=== PATIENT | male | born 1970 | race Caucasian/White ===

== ENCOUNTER → 2016-09-05 | Day surgery (SDC) | payer OTHER ==
[~2016-09-05] VITALS: Ht 175.3 cm; Wt 109.9 kg
[~2016-09-05] MED LIST: ACETAMINOPHEN 1000 MG/100 ML VIAL IV ONE; AMLO5TAB2 PO; ASPI1TAB69 PO; DO NOT ADM ANY ANTICOAGULANT DRUGS XX PRN; FAMOTIDINE 20 MG/2 ML VIAL ONE; INSULIN HUMAN REGULAR 1,000 UNITS/10 ML VIAL SQ PRN; IOHEXOL 350 MG/ML 10 ML VIAL (for RAD DIAG) ONE; KETOROLAC TROMETHAMINE 60 MG/2 ML (IM) VIAL IM ONE; LACTATED RINGER'S 1000 ML IV SCH; LISI-515 PO; LISI20TA3 PO; METOCLOPRAMIDE HCL 10 MG/2 ML VIAL ONE; METOPROLOL TARTRATE 25 MG TAB PO PRN; MIDAZOLAM HCL 2 MG/2 ML VIAL ONE; ONDANSETRON HCL 4 MG/2 ML VIAL IV PUSH ONE; ONDANSETRON HCL 4 MG/2 ML VIAL IV PUSH PRN; PERC5TAB12 PO; PRED20 PO; PROPOFOL 200 MG/20 ML AMP IV ONE; SODIUM CHLORID 0.9% 500 ML IV SCH; ePHEDrine/NS 25 MG/5 ML SYR IV ONE; oxyCODONE/ACETAMINOPHEN 5 MG/325 MG TAB PO PRN
[2016-09-05 08:39] VITALS: BP 161/84; PULSE 80; RESP 18; TEMP 97.9; O2SAT 98
--- NOTE | 2016-09-05 09:08 | RADRPT ---
EXAM DATE/TIME: 09/05/2016 08:15 [facility] COMPARISON: No previous studies available for comparison. INDICATIONS : Pre op lithotripsy. MEDICAL HISTORY : None. SURGICAL HISTORY : None. ENCOUNTER: Initial ACUITY: 1 day PAIN SCORE: 2/10 LOCATION: Right kidney. FINDINGS: Faint density measuring at least 24 mm projects over the central portion of the right kidney, presuma omar a large calculus. No other stones are seen. Normal bowel gas pattern. CONCLUSION: Large right renal mid zone stone. Bruce Palma MD on September 05, 2016 at 9:05 Board Certified Radiologist. This report was verified electronically.
[2016-09-05 09:10] LABS: AUTOMATED NEUTROPHIL # 4.5 TH/MM3 (1.8-7.7); BASOPHIL # 0.1 TH/MM3 (0-0.2); BASOPHIL % 0.8 % (0.0-2.0); EOSINOPHIL # 0.3 TH/MM3 (0-0.4); EOSINOPHIL % 3.7 % (0.0-4.0); HEMATOCRIT 36.3 % (39.0-51.0); HEMO FLAGS DIFF FINAL; LYMPH % 26.7 % (9.0-44.0); LYMPHOCYTE # 1.9 TH/MM3 (1.0-4.8); MEAN CELL VOLUME 85.6 FL (80.0-100.0); MEAN CORPUSCULAR HEMOGLOBIN 29.6 PG (27.0-34.0); MEAN CORPUSCULAR HGB CONC 34.5 % (32.0-36.0); MONO % 7.1 % (0.0-8.0); NEUT % 61.7 % (16.0-70.0); PLATELET COUNT 224 TH/MM3 (150-450); RED BLOOD COUNT 4.24 MIL/MM3 (4.50-5.90); RED CELL DISTRIBUTION WIDTH 13.5 % (11.6-17.2); WHITE BLOOD COUNT 7.3 TH/MM3 (4.0-11.0)
--- NOTE | 2016-09-05 11:56 | PD.OP ---
Operative Report Date of Surgery: Sep 05, 2016 Preoperative Diagnosis: (1) Renal calculus, right Postoperative Diagnosis: (1) Renal calculus, right (2) Urethral stricture Procedure: Cystoscopy, direct visual internal urethrotomy, right retrograde pyelogram, right ureteral stent placement and extracorporeal shockwave lithotripsy of right renal calculus Anesthesia: General Surgeon: Toby Tyler Archeology Faculty Member(s): None Operation and Findings: Indication for procedure: Case of a pleasant 45-year-old gentleman with an approximately 3 cm right renal pelvis calculus who presents today to undergo cystoscopy and right stent placement and right sided shockwave lithotripsy. Procedure in detail: Patient was brought to the operating room suite and placed supine on the lithotripsy table. He was then placed under general anesthesia. He was then repositioned in the dorsal lithotomy position and prepped and draped in normal sterile fashion. After appropriate timeout was undertaken I proceeded with cystoscopic evaluation utilizing the rigid cystoscope with the 20 Niuean sheath and 30 lens. The scope was advanced up to the point of the bulbar urethra and a circumferential urethral stricture was noted that precluded further passage of the cystoscope. The cystoscope was exchanged for the direct visual internal urethrotome and a visual internal urethrotomy was performed utilizing the straight blade by cutting at the 12 o'clock position. Once the stricture was opened I once again exchanged the scope back to the cystoscope and completed cystoscopic evaluation. Both right and left ureteral orifices were in correct anatomic position effluxing clear yellow urine. There were no bladder mucosal lesions, no calculi noted diverticula formation. The prostate was nonobstructing. I then proceeded with utilizing a 5 Niuean open- ended ureteral catheter and performed a right retrograde pyelogram to outline the right collecting system. A sensor 0.035 wire was advanced through the open- ended catheter up to the upper pole collecting system and the open-ended catheter was then exchanged for a 6 Niuean 26 cm petroleum terminal plant operator double-J stent. The stent was passed on the both cystoscopic and fluoroscopic guidance without difficulty. Once the stent was in proper position the trailing string was removed. Next the cystoscope was withdrawn and a 18 Niuean 10 cc Gaspar catheter was placed and connected to gravity drainage. Next the patient's right renal pelvis stone was localized with both fluoroscopy and ultrasound and subsequent shockwave lithotripsy was performed. The MyLorry Piezolith 3000 device was utilized to accomplish this. The patient received a total of 3000 shocks with a maximum power level setting of 20. At the conclusion of the procedure the stone still appeared intact. The patient tolerated the procedures without complications and was transferred to the PACU in satisfactory condition. Toby Tyler MD Sep 05, 2016 11:56
[2016-09-05 13:20] VITALS: BP 141/69; PULSE 93; RESP 16; TEMP 98.2; O2SAT 96
== END | disposition home or self-care (01) ==
LOC: HSDC 07:40
PROVIDERS: ATTEND Urology
DX: N20.0 Calculus of kidney (principal); N35.9 Urethral stricture, unspecified
CPT/HCPCS: 00873; 00910; 50590; 52276; 52332; 74000; 85025; C1769; J0131; J1885; J2250; J2405; J2765; J3010; J7120; Q9967

== ENCOUNTER 2016-10-15 06:37 | Day surgery (SDC) | payer OTHER ==
[~2016-10-15] VITALS: Ht 175.3 cm; Wt 109.1 kg
[~2016-10-15 06:37] MED LIST changes: -ACETAMINOPHEN 1000 MG/100 ML VIAL IV ONE; -DO NOT ADM ANY ANTICOAGULANT DRUGS XX PRN; -FAMOTIDINE 20 MG/2 ML VIAL ONE; -INSULIN HUMAN REGULAR 1,000 UNITS/10 ML VIAL SQ PRN; -IOHEXOL 350 MG/ML 10 ML VIAL (for RAD DIAG) ONE; -KETOROLAC TROMETHAMINE 60 MG/2 ML (IM) VIAL IM ONE; -LACTATED RINGER'S 1000 ML IV SCH; -LISI-515 PO; -METOCLOPRAMIDE HCL 10 MG/2 ML VIAL ONE; -METOPROLOL TARTRATE 25 MG TAB PO PRN; -MIDAZOLAM HCL 2 MG/2 ML VIAL ONE; -ONDANSETRON HCL 4 MG/2 ML VIAL IV PUSH ONE; -ONDANSETRON HCL 4 MG/2 ML VIAL IV PUSH PRN; -PRED20 PO; -PROPOFOL 200 MG/20 ML AMP IV ONE; -SODIUM CHLORID 0.9% 500 ML IV SCH; -ePHEDrine/NS 25 MG/5 ML SYR IV ONE; -oxyCODONE/ACETAMINOPHEN 5 MG/325 MG TAB PO PRN
[2016-10-15 06:49] VITALS: BP 148/95; PULSE 89; RESP 20; TEMP 98.2; O2SAT 97
[2016-10-15 07:32] LABS: APTT (PATIENT) 26.1 SEC (24.3-30.1); INTERNATIONAL NORMALIZED RATIO 0.9 RATIO; PROTHROMBIN TIME - PATIENT 10.3 SEC (9.8-11.6)
[2016-10-15] MEDS ORDERED: MIDAZOLAM HCL 5 MG/5 ML VIAL ONE (07:39)
[2016-10-15] MEDS ORDERED: fentaNYL CITRATE 250 MCG/5 ML AMP ONE (07:40)
[2016-10-15 07:41] LABS: POTASSIUM 3.9 MEQ/L (3.5-5.1)
[2016-10-15] MEDS: LEVOFLOXACIN 500 MG PREMIX 100 ML - nephrostomy tube insertion or exchange IV SCH ×2 (07:45→07:55)
[2016-10-15] MEDS ORDERED: SODIUM CHLORIDE 0.9% 1000 ML IV SCH (08:00)
--- NOTE | 2016-10-15 08:57 | PD.RAD ---
Post Procedure Progress Note Pre Procedure Diagnosis: (1) Renal calculus, right Post Procedure Diagnosis: (1) Renal calculus, right Procedure Date: Oct 15, 2016 Supervising Radiologist: Kenean Cordova Proceduralist/Assist: Justin Yun RT(R), RT Carla(R) Anesthesia: Local, Conscious Sedation Plan of Activity Patient to Unit: ROPU Patient Condition: Good See PACS Report for procedural detail/treatment Drainage Procedure Procedure 1 Imaging Guidance: Fluoroscopy Side: Right Procedure Type: Nephrostomy Procedure: Placement Drainage: [place] drainage Fluid Description: Clear, Red Findings: Large Rt renal pelvis stone; no hydro. Rt internal ureteral stent in place. Keenan Cordova MD Oct 15, 2016 08:57
[2016-10-15 09:00] VITALS: BP 147/78; PULSE 89; RESP 18; TEMP 97.7; O2SAT 97
[2016-10-15] MEDS ORDERED: IOHEXOL 350 MG/ML 50 ML BTL (for RAD DIAG) OTHER ONE (09:09)
[2016-10-15 09:15] VITALS: BP 138/72; PULSE 85; RESP 18; O2SAT 98
[2016-10-15 09:45] VITALS: BP 142/80; PULSE 89; RESP 18; O2SAT 99
[2016-10-15 10:15] VITALS: BP 146/83; PULSE 86; RESP 16; O2SAT 99
[2016-10-15] MEDS ORDERED: HYDROmorphone HCL PF 1 MG/ML VIAL IV PUSH ONE (10:15)
--- NOTE | 2016-10-15 10:42 | RADRPT ---
EXAM DATE/TIME: 10/15/2016 08:16 [facility] COMPARISON: No previous studies available for comparison. INDICATIONS : Patient presents with right renal stones in need of right nephrostomy tube placement. MEDICAL HISTORY : HTN Sleep apnea High cholesterol Right kidney stones SURGICAL HISTORY : Dental surgery Left arm surgery ENCOUNTER: Initial ACUITY: 3 weeks PAIN SCORE: 3/10 LOCATION: Right flank FLUORO TIME: 6.1 minutes IMAGE SERIES: 3 SEDATION TIME: 60 minutes CONTRAST: 15 cc Omnipaque (iohexol) 350 MEDICATION(S): 1.) 5 mg midazolam (Versed) IV 2.) 250 mcg fentanyl (Sublimaze) IV DEVICE(S): 1.) 8.3FR 25CM Expel catheter PROCEDURE : 1. Fluoroscopic guided puncture of the kidney. 2. Antegrade percutaneous pyelogram. 3. Percutaneous nephrostomy placement. 4. Conscious sedation with continuous EKG and oximetry monitoring. The risks, benefits and alternatives to the procedure were explained and verbal and written consent w as obtained. The site was prepped in sterile fashion. Full sterile technique was used, including ca p, mask, sterile gloves and gown and a large sterile sheet. Hand hygiene and 2% chlorhexidine and/or betadine/alcohol prep was utilized per protocol for cutaneous antisepsis. The skin and subcutaneous tissues were infiltrated with local anesthetic solution. With fluoroscopic guidance the selected kidney was punctured and a percutaneous antegrade pyelogram w as performed demonstrating a large renal pelvic calculus. There is no hydronephrosis. Serial dilatati on was performed and a prescribed nephrostomy tube was placed within the renal pelvis and sutured in place. Conscious sedation was performed with the prescribed dosages and duration as above in the presence of an independent trained radiology nurse to assist in the monitoring of the patient. EKG and oximetry remained stable throughout the procedure. The patient tolerated the procedure well and there were n o complications. The patient was sent to post anesthesia recovery in stable condition. CONCLUSION: Uncomplicated nephrostomy tube placement as above. Keenan Cordova MD on October 15, 2016 at 10:38 Board Certified Radiologist. This report was verified electronically.
== END 2016-10-15 11:15 | disposition home or self-care (01) ==
LOC: HROP 06:37 → HRIP 06:41 → HROP 11:15
PROVIDERS: ATTEND Urology
DX: N20.0 Calculus of kidney (principal); G47.30 Sleep apnea, unspecified; I10 Essential (primary) hypertension; E78.00 Pure hypercholesterolemia, unspecified
CPT/HCPCS: 50432; 80048; 85610; 85730; 99152; 99153; C1729; C1769; C1894; J1170; J1956; J2250; J3010; J7030; Q9967

== ENCOUNTER 2016-10-18 05:20 | Inpatient (IN) | payer OTHER ==
[~2016-10-18] VITALS: Ht 175.3 cm; Wt 108.1 kg
[~2016-10-18 05:20] MED LIST changes: -ASPI1TAB69 PO
[2016-10-18] MEDS ORDERED: CHLORHEXIDINE GLUCONATE 2 % 1 PACK (2 CLOTHS) TOPICAL PRN (05:45)
[2016-10-18] MEDS ORDERED: SODIUM CHLORID 0.9% 500 ML IV PRN (05:45)
[2016-10-18] MEDS ORDERED: INSULIN HUMAN REGULAR 1,000 UNITS/10 ML VIAL SQ PRN (05:45)
[2016-10-18] MEDS ORDERED: METOPROLOL TARTRATE 25 MG TAB PO PRN (05:45)
[2016-10-18] MEDS ORDERED: LACTATED RINGER'S 1000 ML IV PRN (05:45)
[2016-10-18] MEDS ORDERED: POVIDONE IODINE 5% (ANTISEPSIS KIT) 4 APPLICATIONS EACH NARE PRN (05:45)
[2016-10-18] MEDS ORDERED: ASPI1TAB69 PO (06:08)
[2016-10-18 06:11] VITALS: BP 132/78; PULSE 74; RESP 18; TEMP 98.4; O2SAT 97
[2016-10-18 06:21] LABS: AUTOMATED NEUTROPHIL # 4.5 TH/MM3 (1.8-7.7); BASOPHIL # 0.1 TH/MM3 (0-0.2); BASOPHIL % 1.5 % (0.0-2.0); EOSINOPHIL # 0.3 TH/MM3 (0-0.4); EOSINOPHIL % 3.5 % (0.0-4.0); HEMATOCRIT 34.5 % (39.0-51.0); HEMO FLAGS DIFF FINAL; LYMPH % 32.3 % (9.0-44.0); LYMPHOCYTE # 2.8 TH/MM3 (1.0-4.8); MEAN CELL VOLUME 85.3 FL (80.0-100.0); MEAN CORPUSCULAR HEMOGLOBIN 30.5 PG (27.0-34.0); MEAN CORPUSCULAR HGB CONC 35.7 % (32.0-36.0); MONO % 10.3 % (0.0-8.0); NEUT % 52.4 % (16.0-70.0); PLATELET COUNT 229 TH/MM3 (150-450); RED BLOOD COUNT 4.04 MIL/MM3 (4.50-5.90); RED CELL DISTRIBUTION WIDTH 13.7 % (11.6-17.2); WHITE BLOOD COUNT 8.6 TH/MM3 (4.0-11.0)
[2016-10-18] MEDS ORDERED: GENTAMICIN INJ 240 MG in SODIUM CHLORIDE 0.9% INJ 100 ML IV SCH (06:30)
[2016-10-18] MEDS ORDERED: AMPICILLIN 1 GM/NS 100 ML IV SCH ×2 (06:30)
[2016-10-18 06:34] LABS: BICARBONATE 25.4 MEQ/L (21.0-32.0)
[2016-10-18] MEDS ORDERED: MIDAZOLAM HCL 2 MG/2 ML VIAL ONE ×2 (07:09→07:22)
[2016-10-18] MEDS ORDERED: FAMOTIDINE 20 MG/2 ML VIAL ONE (07:09)
[2016-10-18] MEDS ORDERED: FUROSEMIDE 40 MG/4 ML VIAL ONE (07:11)
[2016-10-18] MEDS ORDERED: ACETAMINOPHEN 1000 MG/100 ML VIAL IV ONE (07:22)
[2016-10-18] MEDS ORDERED: fentaNYL CITRATE 250 MCG/5 ML AMP ONE (07:23)
[2016-10-18] MEDS ORDERED: IOHEXOL 350 MG/ML 10 ML VIAL (for RAD DIAG) ONE ×2 (08:36)
[2016-10-18] MEDS ORDERED: ONDANSETRON HCL 4 MG/2 ML VIAL IV PUSH PRN (11:30)
[2016-10-18] MEDS ORDERED: diphenhydrAMINE HCL 50 MG/ML VIAL IM PRN (11:30)
[2016-10-18] MEDS ORDERED: ACETAMINOPHEN 650 MG/20.3 ML UDC PO PRN (11:30)
--- NOTE | 2016-10-18 11:44 | PD.OP ---
Operative Report Date of Surgery: Oct 18, 2016 Preoperative Diagnosis: 2.1 cm right renal calculus Postoperative Diagnosis: Same Procedure: Right percutaneous nephrolithotomy Anesthesia: GETA Surgeon: Fredrick Crane Risk And Insurance Consultant(s): None Resident Surgeon: None Operation and Findings: 45-year-old male but finds of 2.1 right renal calculus causing obstruction. He underwent cystoscopy and right double-J stent placed in the past and also had right extraportal shockwave lithotripsy. The stone did not fragment at the time and plan was to undergo right preteens nephrolithotomy. Risk and benefits were discussed and he was willing to proceed. Last week he underwent right percutaneous nephrostomy tube placement by special procedures. Plan was to use this access then to establish a tract to get to the stone. He was brought to the operating room and identified myself as Mustapha Munguia. He was placed in the prone position on the operating table, prepped and draped in usual sterile fashion, had received pre-procedure antibiotic and general endotracheal tube was administered when he was initially in the supine position. He was then later changed to the prone position. All areas were appropriately padded. Using the 11 blade, a small incision was made around the site of the nephrostomy tube. The small drainage catheter was removed after a wire was placed. Initially the wire was only going to curl in the collecting system. I was unable to pass a wire down completely to the bladder. Attempt was made to dilate this tract, however due to its location, the track was too long to provide access to the stone. The access was within the lower pole calyx and the NephroMax sheath was not long enough to get to the area of the collecting system. Plan was then to abort using this path of access and call special procedures to have them come in and establish new access to be able to get directly to the stone. Dr. Navarro was called and came by and was able to establish access directly to the stone. His report will be dictated separately. Once the track was established, the Amplatz wire was then passed down to the Olvera catheter with a good curl in the bladder. The Olvera catheter was removed. The NephroMax balloon dilatation system was then applied over the wire into the collecting system. The balloon was inflated up to 20 mmHg and allowed to sit for 2 minutes. Sheath was then passed over the balloon and the balloon was deflated and removed. The wire remained in place. The nephroscope was then applied through the sheath and the stone was visualized. The cyber wand was then used to fragment of the stone which took approximately 20 minutes. All stone fragments were visually evacuated. The stent remained in place. FloSeal was then applied through the sheath followed by a 20 D[place] owing[place] tip catheter. Antegrade study was then performed through the catheter demonstrating that the catheter was in good position within the collecting system and no stone fragments or filling defects were identified. The lower pole tract incision site was also filled with FloSeal. Both wounds were closed with a 2-0 silk suture and the nephrostomy tube was anchored. Drainage bag was applied to the nephrostomy tube. A Gaspar catheter had remained in during the entire procedure. He tolerated the procedure well and was transferred occurring in stable condition. Fredrick Crane DO Oct 18, 2016 11:44
--- NOTE | 2016-10-18 11:48 | RADRPT ---
EXAM DATE/TIME: 10/18/2016 09:16 [facility] COMPARISON: NEPHROSTOMY, RIGHT, October 15, 2016, 8:16. INDICATIONS : Right kidney lithotripsy. MEDICAL HISTORY : Kidney stones SURGICAL HISTORY : Right kidney stents ENCOUNTER: Initial ACUITY: 1 day PAIN SCORE: Non-responsive. LOCATION: Right kidney. FINDINGS: Intraoperative examination demonstrates a percutaneous nephrostomy tube with a double-J stent in plac e on the right side. Contrast fills the collecting systems with filling defects many gas bubbles. CONCLUSION: Intraoperative examination. Ehsan Farrell MD on October 18, 2016 at 11:45 Board Certified Radiologist. This report was verified electronically.
[2016-10-18] MEDS: LACTATED RINGER'S 1000 ML INJ 1,000 ML IV SCH ×2 (12:00→20:35)
[2016-10-18] MEDS ORDERED: ONDANSETRON HCL 4 MG/2 ML VIAL IV PUSH ONE (12:00)
[2016-10-18] MEDS ORDERED: NEOSTIGMINE 3 MG/3 ML SYR IV ONE (12:00)
[2016-10-18] MEDS: PANTOPRAZOLE SODIUM 40 MG VIAL IV PUSH SCH (12:00)
[2016-10-18] MEDS ORDERED: AMPICILLIN INJ 1,000 MG VIAL IM SCH (12:00)
[2016-10-18] MEDS ORDERED: DO NOT ADM ANY ANTICOAGULANT DRUGS PRN (12:00)
[2016-10-18] MEDS ORDERED: LACTATED RINGER'S 1000 ML INJ 2,000 ML IV ONE (12:00)
[2016-10-18] MEDS ORDERED: ePHEDrine/NS 25 MG/5 ML SYR IV ONE (12:00)
[2016-10-18] MEDS ORDERED: PHENYLEPH/NS 1000 MCG/10 ML SYR IV ONE (12:00)
[2016-10-18] MEDS ORDERED: PROPOFOL 200 MG/20 ML AMP IV ONE (12:00)
--- NOTE | 2016-10-18 12:21 | EKG ---
Date Performed: 10/18/2016 Time Performed: 06:34:42 PTAGE: 45 years EKG: Sinus rhythm INFERIOR MYOCARDIAL INFARCTION , PROBABLY OLD ABNORMAL ECG INTERPRETATION BASED ON A DEFAULT AGE OF 40 YEARS NO PREVIOUS TRACING DOCTOR: Don Munguia Interpretating Date/Time 10/18/2016 12:19:03
[2016-10-18 12:50] LABS: HEMATOCRIT 29.8 % (39.0-51.0); MEAN CELL VOLUME 86.8 FL (80.0-100.0); MEAN CORPUSCULAR HGB CONC 34.5 % (32.0-36.0); PLATELET COUNT 233 TH/MM3 (150-450); RED BLOOD COUNT 3.43 MIL/MM3 (4.50-5.90); RED CELL DISTRIBUTION WIDTH 14.3 % (11.6-17.2); REVIEW FLAG FINAL; WHITE BLOOD COUNT 10.9 TH/MM3 (4.0-11.0)
[2016-10-18 13:11] LABS: BICARBONATE 24.1 MEQ/L (21.0-32.0)
[2016-10-18] MEDS: HYDROmorphone HCL PF 2 MG/ML VIAL IV PUSH PRN ×2 (14:29→18:21)
[2016-10-18 16:00] VITALS: BP 107/60; PULSE 93; RESP 17; TEMP 95.6; O2SAT 94
[2016-10-18 18:21] LABS: HEMATOCRIT 32.2 % (39.0-51.0); REVIEW FLAG FINAL
[2016-10-18] MEDS: AMPICILLIN 1 GM/NS 100 ML IV SCH ×2 (18:21)
[2016-10-18] MEDS ORDERED: diphenhydrAMINE HCL 25 MG CAP PO PRN (18:45)
[2016-10-18] MEDS ORDERED: NALOXONE HCL 0.4 MG/ML AMP IV PRN ×2 (18:45)
[2016-10-18] MEDS ORDERED: diphenhydrAMINE HCL 50 MG/ML VIAL IV PRN (18:45)
[2016-10-18 20:00] VITALS: BP 100/61; PULSE 84; RESP 17; TEMP 97.9; O2SAT 96
[2016-10-18] MEDS: PCA - TOTAL MG DILAUDID DELIVERED PER SHIFT OTHER SCH (22:00)
[2016-10-18] MEDS ORDERED: BELLADONNA ALKALOIDS/OPIUM 60 MG SUPP RECTAL PRN (22:00)
[2016-10-18] MEDS: HYDROmorphone HCL PCA 6 MG/30 ML IV SCH (22:04)
[2016-10-19] VITALS (7 sets, daily range): BP systolic 100–141; BP diastolic 58–78; PULSE 81–109; RESP 16–20; TEMP 95.9–97.7; O2SAT 95–98
[2016-10-19] MEDS: PANTOPRAZOLE SODIUM 40 MG VIAL IV PUSH SCH ×3 (00:25→23:36)
[2016-10-19] MEDS: AMPICILLIN 1 GM/NS 100 ML IV SCH ×2 (00:25)
[2016-10-19] MEDS: LACTATED RINGER'S 1000 ML INJ 1,000 ML IV SCH ×3 (04:00→21:55)
[2016-10-19 05:49] LABS: HEMATOCRIT 27.9 % (39.0-51.0); MEAN CORPUSCULAR HEMOGLOBIN 29.2 PG (27.0-34.0); MEAN CORPUSCULAR HGB CONC 33.5 % (32.0-36.0); PLATELET COUNT 203 TH/MM3 (150-450); RED BLOOD COUNT 3.21 MIL/MM3 (4.50-5.90); RED CELL DISTRIBUTION WIDTH 13.9 % (11.6-17.2); REVIEW FLAG FINAL; WHITE BLOOD COUNT 12.1 TH/MM3 (4.0-11.0)
[2016-10-19 06:18] LABS: BICARBONATE 27.2 MEQ/L (21.0-32.0)
[2016-10-19] MEDS: PCA - TOTAL MG DILAUDID DELIVERED PER SHIFT OTHER SCH ×3 (06:23→21:55)
[2016-10-19] MEDS: HYDROCHLOROTHIAZIDE 25 MG TAB PO SCH (09:00)
[2016-10-19] MEDS: amLODIPine BESYLATE 5 MG TAB PO SCH (09:00)
[2016-10-19] MEDS: LISINOPRIL 20 MG TAB PO SCH (09:00)
--- NOTE | 2016-10-19 09:02 | HHI.PR ---
Subjective Patient symptoms today Pt seen and examined. Feels well. Pain controlled with PACKAGING MECHANIC. Objective Vital Signs Vital Signs Date Time Temp Pulse Resp B/P Pulse Ox O2 Delivery O2 Flow Rate FiO2 10/19/16 08:57 98 Nasal Cannula 2.00 10/19/16 08:00 95.9 109 16 107/58 96 10/19/16 06:23 18 10/19/16 04:00 97.1 81 17 116/62 98 10/19/16 00:00 96.7 86 17 109/59 98 10/18/16 22:04 18 10/18/16 20:00 97.9 84 17 100/61 96 10/18/16 17:52 Nasal Cannula 2.00 10/18/16 16:00 95.6 93 17 107/60 94 10/18/16 13:50 88 16 108/68 94 Nasal Cannula 2 10/18/16 13:30 96 16 117/72 93 Nasal Cannula 2 10/18/16 13:15 89 16 117/60 93 Nasal Cannula 2 10/18/16 13:00 89 16 103/54 93 Nasal Cannula 2 10/18/16 12:45 84 16 83/48 94 Nasal Cannula 2 10/18/16 12:30 86 16 82/49 95 Nasal Cannula 3 10/18/16 12:15 84 16 84/51 95 Nasal Cannula 3 10/18/16 12:00 95 16 83/49 95 Nasal Cannula 3 10/18/16 11:43 97.0 114 16 107/57 95 Nasal Cannula 3 Intake & Output 10/19/16 10/19/16 07:00 19:00 Intake Total 1368 ml Output Total 1400 ml Balance -32 ml Intake Oral 480 ml IV Total 888 ml Output Urine Total 1350 ml Drainage Total 50 ml Result Diagram: 10/19/1635 10/19/1635 Objective Remarks Abd:soft,nt,nd Right PCNT: bloody Gaspar: urine clearing Medications and IVs Current Medications Medications (Trade) Dose Ordered Sig/Yaritza Route Start Time Stop Time Status Last Admin (Dilaudid Pf Inj) 2 mg Q4H PRN IV PUSH 10/18/16 11:30 10/18/16 18:21 (Tylenol 650 Mg/ 20 ml Liq) 650 mg Q6H PRN PO 10/18/16 11:30 (Zofran Inj) 4 mg Q6H PRN IV PUSH 10/18/16 11:30 10/19/16 01:25 (Protonix Inj) 40 mg Q12H IV PUSH 10/18/16 12:00 10/19/16 00:25 (Prinivil) 20 mg DAILY PO 10/19/16 09:00 (Hydrodiuril) 25 mg DAILY PO 10/19/16 09:00 Amlodipine Besylate 5 mg 5 mg DAILY PO 10/19/16 09:00 (Lr 1000 ml Inj) 1,000 ml @ 125 mls/hr Q8H IV 10/18/16 12:00 10/18/16 20:35 Miscellaneous Information ALL NURSING DEPARTME... UNSCH PRN .XX 10/18/16 12:00 10/19/16 11:59 (Narcan Inj) 0.4 mg UNSCH PRN IV 10/18/16 18:45 (Benadryl Inj) 25 mg Q6H PRN IV 10/18/16 18:45 (Benadryl) 25 mg Q6H PRN PO 10/18/16 18:45 (Dilaudid PACKAGING MECHANIC Inj) 6 mg UNSCH IV 10/18/16 18:45 10/18/16 22:04 PACKAGING MECHANIC Dosage Infused (Pha) 1 Q8HR OTHER 10/18/16 22:00 10/19/16 06:23 (B & O Supp) 60 mg Q6H PRN RECTAL 10/18/16 22:00 Assessment and Plan Assessment and Plan Stable s/p Right PCNL OOB to chair Continue clear liquid diet. Fredrick Crane DO Oct 19, 2016 09:02
[2016-10-19] MEDS: HYDROmorphone HCL PCA 6 MG/30 ML IV SCH ×2 (13:46→23:33)
[2016-10-20] VITALS: BP 119/77; PULSE 100; RESP 20; TEMP 97.6; O2SAT 97
[2016-10-20 04:43] LABS: HEMATOCRIT 28.3 % (39.0-51.0); MEAN CELL VOLUME 86.4 FL (80.0-100.0); MEAN CORPUSCULAR HEMOGLOBIN 30.1 PG (27.0-34.0); MEAN CORPUSCULAR HGB CONC 34.8 % (32.0-36.0); PLATELET COUNT 216 TH/MM3 (150-450); RED BLOOD COUNT 3.28 MIL/MM3 (4.50-5.90); RED CELL DISTRIBUTION WIDTH 14.1 % (11.6-17.2); REVIEW FLAG FINAL; WHITE BLOOD COUNT 8.5 TH/MM3 (4.0-11.0)
[2016-10-20 05:08] LABS: BICARBONATE 30.3 MEQ/L (21.0-32.0); POTASSIUM 4.3 MEQ/L (3.5-5.1)
[2016-10-20] MEDS: PCA - TOTAL MG DILAUDID DELIVERED PER SHIFT OTHER SCH (05:41)
[2016-10-20] MEDS: LACTATED RINGER'S 1000 ML INJ 1,000 ML IV SCH ×3 (05:41→21:22)
[2016-10-20 08:00] VITALS: BP 124/73; PULSE 99; RESP 17; TEMP 96.5; O2SAT 92
--- NOTE | 2016-10-20 08:42 | HHI.PR ---
Subjective Patient symptoms today Pt feels well. Still with some pain. Passing gas. Objective Vital Signs Vital Signs Date Time Temp Pulse Resp B/P Pulse Ox O2 Delivery O2 Flow Rate FiO2 10/20/16 08:00 96.5 99 17 124/73 92 10/20/16 00:00 97.6 100 20 119/77 97 10/19/16 23:33 16 10/19/16 21:55 16 10/19/16 20:00 97.5 104 20 141/78 96 10/19/16 16:00 97.7 99 16 114/61 97 10/19/16 14:00 17 10/19/16 13:46 16 10/19/16 12:00 96.5 95 17 100/58 95 10/19/16 08:57 98 Nasal Cannula 2.00 Result Diagram: 10/20/1642610/20/16426 Objective Remarks Abd:soft,nt,nd Right PCNT: bloody Aguiar: urine clearing 10/20 Abd:soft,nt,nd Right PCNT in place; urine clear Ext: neg C/C/E Aguiar clear urine Medications and IVs Current Medications Medications (Trade) Dose Ordered Sig/Yaritza Route Start Time Stop Time Status Last Admin (Dilaudid Pf Inj) 2 mg Q4H PRN IV PUSH 10/18/16 11:30 10/18/16 18:21 (Tylenol 650 Mg/ 20 ml Liq) 650 mg Q6H PRN PO 10/18/16 11:30 (Zofran Inj) 4 mg Q6H PRN IV PUSH 10/18/16 11:30 10/19/16 01:25 (Protonix Inj) 40 mg Q12H IV PUSH 10/18/16 12:00 10/19/16 23:36 (Prinivil) 20 mg DAILY PO 10/19/16 09:00 (Hydrodiuril) 25 mg DAILY PO 10/19/16 09:00 Amlodipine Besylate 5 mg 5 mg DAILY PO 10/19/16 09:00 (Lr 1000 ml Inj) 1,000 ml @ 125 mls/hr Q8H IV 10/18/16 12:00 10/20/16 05:41 (Narcan Inj) 0.4 mg UNSCH PRN IV 10/18/16 18:45 (Benadryl Inj) 25 mg Q6H PRN IV 10/18/16 18:45 (Benadryl) 25 mg Q6H PRN PO 10/18/16 18:45 (Dilaudid EMAIL PRODUCTION SPECIALIST Inj) 6 mg UNSCH IV 10/18/16 18:45 10/19/16 23:33 EMAIL PRODUCTION SPECIALIST Dosage Infused (Pha) 1 Q8HR OTHER 10/18/16 22:00 10/20/16 05:41 (B & O Supp) 60 mg Q6H PRN RECTAL 10/18/16 22:00 Assessment and Plan Assessment and Plan Stable s/p Right PCNL OOB to chair Continue clear liquid diet. 10/20 Stable s/p Right PCNL OOB D/C aguiar catheter; void trial Fredrick Crane DO Oct 20, 2016 08:42
[2016-10-20] MEDS: amLODIPine BESYLATE 5 MG TAB PO SCH (09:00)
[2016-10-20] MEDS: HYDROCHLOROTHIAZIDE 25 MG TAB PO SCH (09:00)
[2016-10-20] MEDS: LISINOPRIL 20 MG TAB PO SCH (09:04)
[2016-10-20 11:25] VITALS: O2SAT 92
[2016-10-20 12:00] VITALS: BP 117/56; PULSE 96; RESP 16; TEMP 98.7; O2SAT 93
[2016-10-20] MEDS: PANTOPRAZOLE SODIUM 40 MG VIAL IV PUSH SCH ×2 (12:29→23:32)
[2016-10-20] MEDS: oxyCODONE/ACETAMINOPHEN 10 MG/325 MG TAB PO PRN ×2 (15:18→21:21)
[2016-10-20 16:00] VITALS: BP 131/70; PULSE 93; RESP 17; TEMP 96.4; O2SAT 97
[2016-10-20 20:00] VITALS: BP 141/73; PULSE 85; RESP 20; TEMP 98.1; O2SAT 98
[2016-10-21] VITALS: BP 117/63; PULSE 88; RESP 20; TEMP 98.5; O2SAT 94
[2016-10-21] MEDS: LACTATED RINGER'S 1000 ML INJ 1,000 ML IV SCH (05:12)
[2016-10-21] MEDS: amLODIPine BESYLATE 5 MG TAB PO SCH (07:42)
[2016-10-21] MEDS: HYDROCHLOROTHIAZIDE 25 MG TAB PO SCH (07:42)
[2016-10-21] MEDS: LISINOPRIL 20 MG TAB PO SCH (07:42)
[2016-10-21 08:00] VITALS: BP 120/68; PULSE 83; RESP 17; TEMP 97.7; O2SAT 96
[2016-10-21] MEDS: oxyCODONE/ACETAMINOPHEN 10 MG/325 MG TAB PO PRN (09:05)
--- NOTE | 2016-10-21 09:07 | HHI.PR ---
Subjective Patient symptoms today Pt feels well. Objective Vital Signs Vital Signs Date Time Temp Pulse Resp B/P Pulse Ox O2 Delivery O2 Flow Rate FiO2 10/21/16 08:00 97.7 83 17 120/68 96 10/21/16 00:00 98.5 88 20 117/63 94 10/20/16 20:00 98.1 85 20 141/73 98 10/20/16 16:00 96.4 93 17 131/70 97 10/20/16 12:00 98.7 96 16 117/56 93 10/20/16 11:25 92 21 Result Diagram: 10/20/1642610/20/16426 Objective Remarks Abd:soft,nt,nd Right PCNT: bloody Aguiar: urine clearing 10/20 Abd:soft,nt,nd Right PCNT in place; urine clear Ext: neg C/C/E Aguiar clear urine 10/21 Abd:soft,nt,nd Right PCNT in place; urine clear Ext: neg C/C/E Aguiar clear urine Medications and IVs Current Medications Medications (Trade) Dose Ordered Sig/Yaritza Route Start Time Stop Time Status Last Admin (Dilaudid Pf Inj) 2 mg Q4H PRN IV PUSH 10/18/16 11:30 10/18/16 18:21 (Tylenol 650 Mg/ 20 ml Liq) 650 mg Q6H PRN PO 10/18/16 11:30 (Zofran Inj) 4 mg Q6H PRN IV PUSH 10/18/16 11:30 10/19/16 01:25 (Protonix Inj) 40 mg Q12H IV PUSH 10/18/16 12:00 10/20/16 23:32 (Prinivil) 20 mg DAILY PO 10/19/16 09:00 10/21/16 07:42 (Hydrodiuril) 25 mg DAILY PO 10/19/16 09:00 Amlodipine Besylate 5 mg 5 mg DAILY PO 10/19/16 09:00 (Lr 1000 ml Inj) 1,000 ml @ 125 mls/hr Q8H IV 10/18/16 12:00 10/21/16 05:12 (B & O Supp) 60 mg Q6H PRN RECTAL 10/18/16 22:00 (Percocet 10-325 Mg) 1 tab Q4H PRN PO 10/20/16 08:45 10/21/16 09:05 Assessment and Plan Assessment and Plan Stable s/p Right PCNL OOB to chair Continue clear liquid diet. 10/20 Stable s/p Right PCNL OOB D/C aguiar catheter; void trial 10/21 10/20 Stable s/p Right PCNL D/C home Fredrick Crane DO Oct 21, 2016 09:07
--- NOTE | 2016-10-21 10:23 | RADRPT ---
EXAM DATE/TIME: 10/21/2016 10:10 [facility] COMPARISON: ABDOMEN KUB ONLY, October 18, 2016, 9:16. INDICATIONS : Post PCNL. MEDICAL HISTORY : Kidney stones. SURGICAL HISTORY : None. ENCOUNTER: Initial ACUITY: 1 day PAIN SCORE: 0/10 LOCATION: Right abdomen FINDINGS: Supine view of the abdomen was performed. There is a right ureteral stent and nephrostomy tube in pl leo. The abdominal bowel gas pattern is normal. No abnormal masses, calcifications, or organomegaly is seen. The osseous structures are unremarkable. CONCLUSION: Right nephrostomy and ureteral stents in place. Bruce Jiang MD on October 21, 2016 at 10:20 Board Certified Radiologist. This report was verified electronically.
--- NOTE | 2016-10-22 13:23 | RADRPT ---
EXAM DATE/TIME: 10/18/2016 00:00 [facility] COMPARISON: NEPHROSTOMY, RIGHT, October 15, 2016, 8:16. INDICATIONS : Done in the OR with urology services. Renal calculi right side. MEDICAL HISTORY : HTN Sleep apnea High cholesterol Right kidney stones SURGICAL HISTORY : Dental surgery Left arm surgery ENCOUNTER: Subsequent ACUITY: 1 month PAIN SCORE: Non-responsive FLUORO TIME: 31 minutes IMAGE SERIES: 0 0 CONTRAST: 10 cc Omnipaque (iohexol) 350 DEVICE(S): 1.) 4 FR Routine Berenstein Cath Anesthesia and pain control was provided by the Anesthesia department. PROCEDURE : 1. Antegrade percutaneous pyelogram. 2. Percutaneous nephrostomy placement. Was called to the OR to assist with percutaneous nephrolithotomy. Patient had a previously placed nep hrostomy in the interventional department on 10/15/16. However, Dr. Crane had a problem inserting the necessary equipment over the existing tract to facilitate nephrolithotomy. Therefore, a new access w as obtained using fluoroscopic guidance. 22 gauge spinal needle was advanced down to the radiopaque c alculus in the renal collecting system. An 018 wire was advanced through the needle and into the alejandro ecting system. Over the wire, the 34 dilator was placed. Through the outer 4 Italian dilator, the 035 Glidewire was advanced into the collecting system and steered into the ureter with a hockey-stick cat heter. Catheter and wire were manipulated down into the urinary bladder. The wire was removed and rep laced with an Amplatz superstiff wire to facilitate nephrolithotomy . CONCLUSION: Uncomplicated wire placement into the right renal collecting system to facilitate nephrolithotom y as above. Osei Worrell MD on October 22, 2016 at 13:08 Board Certified Radiologist. This report was verified electronically.
--- NOTE | 2016-11-19 08:50 | MD ---
cc: MICHAEL MAN ADMISSION DATE: 10/18/2016 DISCHARGE DATE: 10/21/2016 BRIEF HISTORY AND HOSPITAL COURSE Mr. Munguia is a pleasant 51-year-old male who had a large right renal stone, approximately 2.5 cm in size. He elected to undergo percutaneous nephrolithotomy. A few days prior to admission he underwent right percutaneous nephrostomy tube insertion and was admitted to the hospital a few days later to undergo his right percutaneous nephrolithotomy. He had an uneventful course. On hospital day #1 he was feeling well. He did have some pain issues but over time they improved. On day two he was tolerating his regular diet and ambulating. On day three the decision was made to discharge the patient. At that time a KUB x-ray was performed showing no evidence of any residual stones. He had a right ureteral stent in place as well as the right percutaneous nephrostomy tube. At the time of discharge he was given instructions on diet, exercise and medications. He will schedule follow-up in the office in one week to undergo nephrostomy tube removal and in two weeks will undergo stent removal. Michael OJEDA/BT /9:37 AM /8:44 AM
== END 2016-10-21 11:32 | disposition home or self-care (01) | DRG 661 ==
LOC: HSDC 05:20 → HSDI 11:36 → N07A 13:59
PROVIDERS: ADMIT Urology; ATTEND Urology
PROC: 0T9030Z Drainage of Right Kidney with Drainage Device, Percutaneous Approach (ICD-10-PCS; 2016-10-15)
PROC: BT1D1ZZ Fluoroscopy of Right Kidney, Ureter and Bladder using Low Osmolar Contrast (ICD-10-PCS; 2016-10-15)
PROC: 0TC03ZZ Extirpation of Matter from Right Kidney, Percutaneous Approach (ICD-10-PCS; principal; 2016-10-18 07:49)
DX: N20.0 Calculus of kidney (principal); E66.9 Obesity, unspecified; I10 Essential (primary) hypertension; N13.9 Obstructive and reflux uropathy, unspecified; Z68.35 Body mass index [BMI] 35.0-35.9, adult; G47.30 Sleep apnea, unspecified; E78.00 Pure hypercholesterolemia, unspecified
CPT/HCPCS: 50432; 74000; 76000; 80048; 82370; 85014; 85018; 85025; 85027; 85610; 85730; 88300; 93005; 94150; 99152; 99153; C1726; C1729; C1769; C1894; C9113; J0131; J0290; J1170; J1580; J1940; J1956; J2250; J2370; J2405; J2710; J3010; J7030; J7120; Q9967

== ENCOUNTER 2016-12-10 13:54 | Emergency (ER) | payer OTHER ==
[~2016-12-10] VITALS: Ht 175.3 cm; Wt 108.0 kg
[~2016-12-10 13:54] MED LIST changes: +ASPI1TAB69 PO
[2016-12-10 13:56] VITALS: BP 137/77; PULSE 102; RESP 20; TEMP 97.8; O2SAT 100
--- NOTE | 2016-12-10 14:41 | PD ---
HPI Chief Complaint: Injury Time Seen by Provider: 14:40 Travel History International Travel<30 days: No Contact w/Intl Traveler<30days: No Traveled to known affect area: No History of Present Illness HPI 45 y/o Male with 2 week Hx. Right Ankle Pain. Patient states he did have a small trip approximate 2 weeks ago while going to the mailbox but no other significant history. Patient states his ankle improved after the initial injury , but 3 days ago started hurting upon awakening, and improved after some ibuprofen and Naprosyn. He states however the pain returns with swelling especially first thing in the morning. Worse today than it has been in the last 2 other days. He has no fever, chills, or other symptoms. She has significant history of recent renal lithiasis requiring stent placement for uric acid stone removal from the right kidney. Patient has never been told he has high uric acid levels, or history of gout in the past. Patient does admit that his diet could be causing gout. Currently his pain is approximately 8 out of 10. Patient has a follow-up with his urologist next week. He has no known drug allergies. PFSH Past Medical History Cancer: No Cardiovascular Problems: No Diabetes: No Endocrine: No Genitourinary: No Hepatitis: No Hiatal Hernia: No Immune Disorder: No Musculoskeletal: No Neurologic: No Psychiatric: No Reproductive: No Respiratory: No Thyroid Disease: No Past Surgical History Abdominal Surgery: No AICD: No Body Medical Devices: none Cardiac Surgery: No Ear Surgery: No Endocrine Surgery: No Eye Surgery: No Genitourinary Surgery: Yes (STENT,URETEROSTOMY) Gynecologic Surgery: No Joint Replacement: No Oral Surgery: Yes (wisdom teeth) Pacemaker: No Thoracic Surgery: No Social History Alcohol Use: Yes Tobacco Use: No Substance Use: No Allergies-Medications (Allergen,Severity, Reaction): Coded Allergies: No Known Allergies (Unverified , 12/10/16) Reported Meds & Prescriptions Reported Meds & Active Scripts Active Reported Lisinopril-Hctz 20-25 Mg Tab 1 Tab PO DAILY Review of Systems Except as stated in HPI: all other systems reviewed are Neg General / Constitutional: No: Fever Eyes: No: Visual changes HENT: No: Headaches Cardiovascular: No: Chest Pain or Discomfort Respiratory: No: Shortness of Breath Gastrointestinal: No: Abdominal Pain Genitourinary: No: Dysuria Musculoskeletal: Positive: Arthralgias, Limited ROM, Pain Skin: No Rash Neurologic: No: Weakness Psychiatric: No: Depression Endocrine: No: Polydipsia Hematologic/Lymphatic: No: Easy Bruising Physical Exam Narrative GENERAL: Patient appears in mild distress. SKIN: Warm and dry. Normal color. Normal turgor. No open wounds. No abrasions. No significant erythema over the right ankle. HEAD: Atraumatic. Normocephalic. EYES: Pupils equal and round. No scleral icterus. No injection or drainage. ENT: No nasal bleeding or discharge. Mucous membranes pink and moist. Pharynx is clear. NECK: Trachea midline. Supple and nontender. CARDIOVASCULAR: Regular rate and rhythm. RESPIRATORY: No accessory muscle use. Clear to auscultation. Breath sounds equal bilaterally. MUSCULOSKELETAL: Extremities without clubbing, cyanosis. No obvious deformities. Patient has edema and swelling with warmth over the right ankle more laterally than medially. The right foot itself is unremarkable. NEUROLOGICAL: Awake and alert. No obvious cranial nerve deficits. Motor grossly within normal limits. Five out of 5 muscle strength in the arms and legs. Normal speech. PSYCHIATRIC: Appropriate mood and affect; insight and judgment normal. Data Data Last Documented VS Vital Signs Date Time Temp Pulse Resp B/P Pulse Ox O2 Delivery O2 Flow Rate FiO2 12/10/16 13:56 97.8 102 20 137/77 100 Room Air Orders Ankle, Complete ([id number]) (12/10/16 14:55) [facility] Medical Decision Making Medical Screen Exam Complete: Yes Emergency Medical Condition: Yes Medical Record Reviewed: Yes Differential Diagnosis Right ankle pain and swelling. Probable gout. Possible ankle fracture. Narrative Course Patient is medically stable at time of exam. X-ray of the right ankle is ordered. X-ray shows no acute fracture or dislocation. Per radiologist Patient will be treated on an outpatient basis with prednisone 20 mg twice a day for 5 days. Recommend patient have close follow-up with his urologist and/or primary care physician to discuss his uric acid, and possible need for uric acid lowering medications. No labs are performed at this time, and this was discussed with the patient. Patient can return if symptoms do not improve or worsen as discussed. Diagnosis Primary Impression: Acute gout of right ankle Qualified Code: M10.9 - Acute gout of right ankle, unspecified cause Referrals: Primary Care Physician Urologist Patient Instructions: General Instructions, Gout (ED), Low Purine Diet (ED) Additional Instructions: X-ray shows no acute fracture or dislocation. Per radiologist Patient will be treated on an outpatient basis with prednisone 20 mg twice a day for 5 days. Recommend patient have close follow-up with his urologist and/or primary care physician to discuss his uric acid, and possible need for uric acid lowering medications. No labs are performed at this time, and this was discussed with the patient. Patient can return if symptoms do not improve or worsen as discussed. Med/Other Pt SpecificInfo: Prescription(s) given Disposition: 01 DISCHARGE HOME Condition: Stable Zaire Harper Dec 10, 2016 14:41
[2016-12-10] MEDS ORDERED: PRED20 PO (15:16)
--- NOTE | 2016-12-10 16:14 | RADRPT ---
EXAM DATE/TIME: 12/10/2016 15:13 [facility] COMPARISON: No previous studies available for comparison. INDICATIONS : Right lateral ankle pain. No known injury. MEDICAL HISTORY : Renal calculi. SURGICAL HISTORY : None. ENCOUNTER: Initial ACUITY: 3 days PAIN SCORE: 6/10 LOCATION: Right lateral ankle FINDINGS: Three view exam was performed of the right ankle. The bony structures are in normal alignment. No e vidence of fracture, dislocation, or soft tissue swelling. The ankle mortise is intact. No radiopaq ue foreign bodies are seen. Bony mineralization is normal. CONCLUSION: No acute disease. Coy Mohamud MD on December 10, 2016 at 16:12 Board Certified Radiologist. This report was verified electronically.
== END 2016-12-10 15:40 | disposition home or self-care (01) ==
LOC: NEPK 13:54
DX: M10.9 Gout, unspecified (principal)
CPT/HCPCS: 73610; 99283